=== PATIENT | male | born 1985 | race Caucasian/White ===

== ENCOUNTER 2020-03-28 04:29 | Emergency (ER) | payer OTHER ==
[~2020-03-28] VITALS: Ht 170.2 cm; Wt 79.4 kg
[2020-03-28 05:06] LABS: HEMATOCRIT 37.1 % (42.0-52.0); HEMOGLOBIN 12.2 gm/dL (14.0-18.0); MCH 26.1 pg (26.0-34.0); MCHC 32.9 g/dL (28.0-37.0); MCV 79.1 fL (80.0-100.0); PLATELET COUNT 312 thou/uL (150-400); RBC 4.69 mil/uL (4.50-6.00); RDW 14.9 % (10.5-14.5); WBC 32.5 thou/uL (4.0-11.0)
[2020-03-28 05:14] LABS: ANION GAP 11 mmol/L (7-16); BUN 25 mg/dL (7-18); CHLORIDE 99 mmol/L (98-107); CO2 25 mmol/L (21-32); CREATININE 1.2 mg/dL (0.7-1.3); POTASSIUM 5.1 mmol/L (3.5-5.1); SODIUM 135 mmol/L (136-145)
[2020-03-28 05:15] LABS: GLUCOSE 71 mg/dL (74-106)
[2020-03-28 05:30] LABS: ALBUMIN 3.8 g/dL (3.4-5.0); SALICYLATE < 2.8 mg/dL (2.8-20.0); SGOT 131 U/L (15-37); SGPT 141 U/L (16-63); TOTAL BILIRUBIN 0.9 mg/dL (0.2-1.0)
[2020-03-28 05:47] LABS: ABSOLUTE NEUTROPHILS 27.6 thou/uL (1.4-8.2); ATYPICAL LYMPHS 1 %; MYELOCYTES 1 %
[2020-03-28 06:07] LABS: URINE BILIRUBIN NEGATIVE (Negative); URINE BLOOD 1+ (Negative); URINE CLARITY CLEAR; URINE COLOR YELLOW; URINE GLUCOSE-RANDOM* NEGATIVE (Negative); URINE KETONES NEGATIVE (Negative); URINE LEUKOCYTES-REFLEX NEGATIVE (Negative); URINE NITRITE-REFLEX NEGATIVE (Negative); URINE PROTEIN (DIPSTICK) 1+ (Negative); URINE SPECIFIC GRAVITY 1.025 (1.005-1.035); URINE UROBILINOGEN 0.2 E.U./dl (0.2-1.0)
[2020-03-28 06:16] LABS: AMP/METHAMP POSITIVE (Negative); BARBITURATES Negative (Negative); BENZODIAZEPINES POSITIVE (Negative); COCAINE Negative (Negative); METHADONE Negative (Negative); OPIATES POSITIVE (Negative); PCP Negative (Negative)
[2020-03-28 06:32] LABS: CASTS None Seen /LPF (None Seen); MUCUS None Seen strn/LPF (None Seen); SQUAMOUS None Seen /LPF (0-3); TRANSITIONAL EPITHEL CELL 0-3 Few /LPF (None Seen)
[2020-03-28 06:33] LABS: BACTERIA-REFLEX None Seen /HPF (None Seen); CRYSTALS None Seen /LPF (None Seen); URINE RBC 0-2 Rare /HPF (0-2); URINE WBC-REFLEX 0-5 Rare /HPF (0-5)
[2020-03-28 11:20] VITALS: BP 132/93
--- NOTE | 2020-03-30 07:28 | EKG ---
[address] [place] [address] ELECTROCARDIOGRAM REPORT Name: FLORINA ANDREWS [id number] Admission: 03/28/20 Attend Phys: Discharge: 03/28/20 Date of : 83 Report #: [id number] [facility] ED Test Date: 2020-03-28 Test Time: 05:05:10 Pat Name: FLORINA ANDREWS Department: Room: Gender: Dance Artist: : 1985 Requested By: Andrew Singer Order Number: [id number] MD: Aki Henderson Measurements Intervals [place] Rate: 122 P: 74 TN: 122 QRS: 51 QRSD: 85 T: 42 QT: 323 QTc: 460 Interpretive Statements Sinus tachycardia ST elev, probable normal early repol pattern No previous ECG available for comparison Electronically Signed On 03-30-2020 7:27:48 DIRECTOR OF EVENT MARKETING by Aki Henderson [email or web address] <ELECTRONICALLY SIGNED> By: Aki Henderson MD, [facility] 03/30/20 [id number] Aki Henderson MD, FACC /EPI
== END 2020-03-28 11:20 | disposition home or self-care (01) ==
LOC: ER 04:29
PROVIDERS: Emergency Medicine
DX: T42.4X1A Poisoning by benzodiazepines, accidental (unintentional), initial encounter (principal); D21.9 Benign neoplasm of connective and other soft tissue, unspecified; F19.951 Other psychoactive substance use, unspecified with psychoactive substance-induced psychotic disorder with hallucinations; Y92.89 Other specified places as the place of occurrence of the external cause